=== PATIENT | female | born 2000 | race Caucasian/White ===

== ENCOUNTER 2020-06-02 22:01 | Emergency (ER) | payer SELFPAY ==
[~2020-06-02] VITALS: Ht 154.9 cm; Wt 59.1 kg
[~2020-06-02 22:01] MED LIST: NO MEDS
[2020-06-02 22:27] VITALS: BP 105/67
== END 2020-06-02 23:47 | disposition home or self-care (01) ==
LOC: EMS 22:06
DX: R07.89 Other chest pain (principal); F41.9 Anxiety disorder, unspecified; F12.90 Cannabis use, unspecified, uncomplicated
CPT/HCPCS: 93005